=== PATIENT | female | born 1965 | race Caucasian/White ===

== ENCOUNTER → 2017-07-02 | Outpatient (CLI) | payer OTHER ==
[~2017-07-02] MED LIST: AMIT25TA9 PO; ATR25 PO; ATV5 PO; FLUT0.15 NAE; LSN/2025 PO; METO50TA8 PO; OXYC-57 PO; RIZA10TA18 PO; SERT-234 PO; VNTHFA/IN INH
--- NOTE | 2017-07-02 13:12 | DIAGNOSTIC IMAGING REPORT ---
R KNEE 3 VIEWS CLINICAL HISTORY: 51 years-old Female presenting with PAIN IN RIGHT KNEE. TECHNIQUE: Frontal, lateral, and sunrise views of the right knee were obtained. COMPARISON: None. FINDINGS: Mild medial joint space loss. Tricompartmental osteophytosis most prominent in the lateral compartment. There is [id number] cartilage loss at the lateral patellar facet. No significant patellar subluxation. No acute fracture or acute malalignment. No large knee joint effusion. IMPRESSION: 1. Tricompartmental degenerative changes most severe in the patellofemoral compartment. 2. No acute osseous injury. Electronically signed by: Amrit Currie M.D. 07/02/2017 1:10 PM Dictated Date/Time: 07/02/2017 1:09 PM
== END | disposition home or self-care (01) ==
LOC: C.RADBC 12:46
PROVIDERS: ATTEND Family Medicine
DX: M25.561 Pain in right knee (principal)

== ENCOUNTER → 2017-10-04 | Outpatient (CLI) | payer OTHER ==
[~2017-10-04] MED LIST changes: +LISI20TA11 PO; -LSN/2025 PO
--- NOTE | 2017-10-04 11:25 | DIAGNOSTIC IMAGING REPORT ---
L HAND MIN 3 VIEWS ROUTINE CLINICAL HISTORY: L40.50, M25.561, M79.671,M79.672, Z79.1 LEFT HAND PAIN COMPARISON: None. DISCUSSION: The bony mineralization appears normal. There are no acute fractures or dislocations. There are osteoarthritic changes present the level of the radiocarpal joint and first carpal metacarpal joint. There is no erosive disease. IMPRESSION: 1. No acute fractures 2. Osteoarthritic type changes at the level of the radiocarpal joint and first carpal metacarpal joint. 3. No evidence of erosive disease Electronically signed by: Talha Chávez M.D. 10/04/2017 11:24 AM Dictated Date/Time: 10/04/2017 11:23 AM
--- NOTE | 2017-10-04 11:47 | DIAGNOSTIC IMAGING REPORT ---
R HAND MIN 3 VIEWS ROUTINE CLINICAL HISTORY: L40.50, M25.561, M79.671,M79.672, Z79.1 RIGHT HAND PAIN COMPARISON: None. DISCUSSION: No acute fractures are visualized. There are no subluxations. There is no significant joint space narrowing. There is a tiny ulnar styloid erosion. Bony mineralization appears normal. IMPRESSION: 1. Ulnar styloid erosion 2. No fractures or subluxations identified. Electronically signed by: Talha Chávez M.D. 10/04/2017 11:46 AM Dictated Date/Time: 10/04/2017 11:45 AM
--- NOTE | 2017-10-04 11:48 | DIAGNOSTIC IMAGING REPORT ---
R FOOT MIN 3 VIEWS ROUTINE, L FOOT MIN 3 VIEWS ROUTINE HISTORY: 51 years-old Female L40.50, M25.561, M79.671,M79.672, Z79.1 chronic bilateral foot and hand pain COMPARISON: None available TECHNIQUE: 3 views of the bilateral feet FINDINGS: RIGHT: Moderate joint space narrowing with subchondral sclerosis and marginal spurring about the first MTP joint. Mild degenerative changes about the interphalangeal joints. Degenerative changes are noted about the midfoot and hindfoot. Large plantar enthesophyte about the calcaneus. No acute fracture or dislocation. LEFT: Moderate joint space narrowing with subchondral sclerosis and marginal spurring about the first MTP joint. Mild degenerative changes about the interphalangeal joints. Subcortical cystic changes with joint space narrowing noted throughout the tarsometatarsal joints. Large plantar enthesophyte about the calcaneus. No acute fracture or dislocation. IMPRESSION: 1. No acute fracture or dislocation. 2. Degenerative changes about the bilateral feet including moderate osteoarthritis about the bilateral first MTP joints. The above report was generated using voice recognition software. It may contain grammatical, syntax or spelling errors. Electronically signed by: Tyshawn Machado M.D. 10/04/2017 11:47 AM Dictated Date/Time: 10/04/2017 11:44 AM
[2017-10-04 12:30] LABS: BASO % 0.7 %; BASO ABS # 0.05 K/uL (0-0.2); EOS % 2.2 %; EOS ABS # 0.15 K/uL (0-0.5); HEMATOCRIT 39.1 % (37-47); HEMOGLOBIN 12.9 g/dL (12.0-16.0); IG# 0.02 K/uL (0.00-0.02); LYMPH % 23.8 %; LYMPH ABS # 1.65 K/uL (1.2-3.4); MEAN CELL VOLUME 91.8 fL (80-100); MEAN CORPUSCULAR HEMOGLOBIN 30.3 pg (25-34); MEAN PLATELET VOLUME 9.6 fL (7.4-10.4); MONO % 5.5 %; MONO ABS # 0.38 K/uL (0.11-0.59); NEUT % 67.5 %; NEUT ABS # 4.67 K/uL (1.4-6.5); PLATELET COUNT 267 K/uL (130-400); RED CELL DISTRIBUTION WIDTH SD 43.5 fL (36.4-46.3); WHITE BLOOD COUNT 6.92 K/uL (4.8-10.8)
[2017-10-04 12:45] LABS: ALBUMIN 3.8 gm/dl (3.4-5.0); ALKALINE PHOSPHATASE 80 U/L (45-117); ALT/SGPT 49 U/L (12-78); AST/SGOT 24 U/L (15-37); CREATININE 0.82 mg/dl (0.60-1.20); TOTAL PROTEIN 7.9 gm/dl (6.4-8.2)
== END | disposition home or self-care (01) ==
LOC: C.RAD1850 10:46
PROVIDERS: ATTEND Internal Medicine Rheumatology
DX: L40.50 Arthropathic psoriasis, unspecified (principal); M25.561 Pain in right knee; M79.671 Pain in right foot; M79.672 Pain in left foot; Z79.1 Long term (current) use of non-steroidal anti-inflammatories (NSAID); M19.071 Primary osteoarthritis, right ankle and foot; M19.072 Primary osteoarthritis, left ankle and foot; M19.042 Primary osteoarthritis, left hand; M18.12 Unilateral primary osteoarthritis of first carpometacarpal joint, left hand; M25.831 Other specified joint disorders, right wrist

== ENCOUNTER 2022-09-23 05:11 | Observation (INO) ==
--- NOTE | 2022-09-04 16:21 | PAT Medication Instructions ---
Medication Instructions Date of Service September 04, 2022 Home Medications Medication Instructions Recorded lorazepam 1 mg tablet 1 mg PO HS #30 tabs 04/07/22 nabumetone 750 mg tablet 750 mg PO BID #60 tabs 07/08/22 tramadol 50 mg tablet 50 mg PO Q8H PRN pain #30 tabs 07/20/22 amitriptyline 25 mg tablet 25 - 50 mg PO HS lisinopril 20 mg-hydrochlorothiazide 25 mg tablet 1 tab PO QAM pantoprazole 40 mg tablet,delayed release 40 mg PO QAM vit C 250 mg-vit E 90 mg-zinc 40 mg-copper 1 [id number] capsule (PreserVision AREDS-2) 1 tab PO BID fluticasone propionate 50 mcg/actuation nasal spray,suspension 1 spray intranasal DAILY rizatriptan 10 mg tablet 10 mg PO DIRECTED PRN Migraine Headache acetaminophen 500 mg tablet 1,000 mg PO TID PRN Pain cholecalciferol (vitamin D3) 125 mcg (5,000 unit) capsule 5,000 unit PO DAILY lorazepam 1 mg tablet 1 mg PO HS vitamin B complex 1 tab PO DAILY nabumetone 750 mg tablet 750 mg PO BID tramadol 50 mg tablet 50 mg PO Q8H PRN pain ascorbic acid (vitamin C) 500 mg capsule,extended release (Vitamin C) 500 mg PO DAILY cetirizine 10 mg tablet (Zyrtec) 10 mg PO HS dandelion root 500 mg capsule 500 mg PO DAILY fluticasone propionate 44 mcg/actuation HFA aerosol inhaler (Flovent HFA) 1 puff inhalation BID PRN sob melatonin 5 mg tablet 5 mg PO HS montelukast 10 mg tablet (Singulair) 10 mg PO QAM phenazopyridine 200 mg tablet (Pyridium) 200 mg PO Q8H PRN bladder pain zinc 50 mg tablet 50 mg PO DAILY ASK your surgeon for instructions nabumetone 750 mg tablet 750 mg PO BID ASK your prescriber and surgeon amitriptyline 25 mg tablet 25 - 50 mg PO HS STOP taking 2 weeks before surgery (or as soon as possible if surgery is within 2 weeks) vit C 250 mg-vit E 90 mg-zinc 40 mg-copper 1 [id number] capsule (PreserVision AREDS-2) 1 tab PO BID dandelion root 500 mg capsule 500 mg PO DAILY DO NOT take the morning of surgery lisinopril 20 mg-hydrochlorothiazide 25 mg tablet 1 tab PO QAM cholecalciferol (vitamin D3) 125 mcg (5,000 unit) capsule 5,000 unit PO DAILY vitamin B complex 1 tab PO DAILY ascorbic acid (vitamin C) 500 mg capsule,extended release (Vitamin C) 500 mg PO DAILY zinc 50 mg tablet 50 mg PO DAILY Take morning of surgery With a small sip of water, OTHERWISE NOTHING TO EAT OR DRINK AFTER MIDNIGHT: pantoprazole 40 mg tablet,delayed release 40 mg PO QAM fluticasone propionate 50 mcg/actuation nasal spray,suspension 1 spray intranasal DAILY rizatriptan 10 mg tablet 10 mg PO DIRECTED PRN Migraine Headache (if needed) acetaminophen 500 mg tablet 1,000 mg PO TID PRN Pain (if needed) tramadol 50 mg tablet 50 mg PO Q8H PRN pain (if needed) fluticasone propionate 44 mcg/actuation HFA aerosol inhaler (Flovent HFA) 1 puff inhalation BID PRN sob (if needed) phenazopyridine 200 mg tablet (Pyridium) 200 mg PO Q8H PRN bladder pain (if needed) Take evening before surgery rizatriptan 10 mg tablet 10 mg PO DIRECTED PRN Migraine Headache (if needed) acetaminophen 500 mg tablet 1,000 mg PO TID PRN Pain (if needed) lorazepam 1 mg tablet 1 mg PO HS tramadol 50 mg tablet 50 mg PO Q8H PRN pain (if needed) cetirizine 10 mg tablet (Zyrtec) 10 mg PO HS fluticasone propionate 44 mcg/actuation HFA aerosol inhaler (Flovent HFA) 1 puff inhalation BID PRN sob (if needed) melatonin 5 mg tablet 5 mg PO HS phenazopyridine 200 mg tablet (Pyridium) 200 mg PO Q8H PRN bladder pain (if needed) Other Notes If you have any questions please call us at [phone] or [phone] or [phone] or [phone]
--- NOTE | 2022-09-09 15:39 | Anesthesiology Consultation ---
Date of Service September 09, 2022 Assessment & Plan (1) Encounter for pre-operative examination: - patient does not blood transfusions unless in a life threatening situation. She declines providing reason for this. She mentions she is Rh negative, but expresses that is not her reason for concern. Surgeon's office made aware. I did discuss with patient and offer that she could contact the [facility] for a self- donation though would need to postpone surgery given recommendations on interval from self-donation to surgery or she could contact the [facility] for family member screening and donation. She declined both options. - patient concerns with neuraxial anesthesia: she has concerns this will exacerbate her chronic headaches, although prefers to avoid general anesthesia and plans to further discuss with anesthesiologist DOS. - Patient plans to contact her PCP regarding recurrence of symptoms with symptom free interval since completing antibiotic course for acute frontal sinusitis. She was not agreeable to COVID testing today. She was advised she will need to contact PAT if symptoms are not resolved by 09/13/22 as current policy is COVID testing be completed if patient is experiencing symptoms within 10 days of surgery, but also to determine if she is clinically appropriate to have surgery as scheduled. She verbalized understanding and agreement, denied questions or concerns. - check urine test STAT am DOS. - Outpatient joint assessment: Patient is currently scheduled for inpatient pathway. If re-evaluated and patient/surgeon requests outpatient pathway, patient is acceptable candidate for outpatient joint program from anesthesia standpoint pending surgeon's office assessment of pt motivation/support/completion of same day joint program preop requirements. Chart Review Chart Review: Acceptable Risk for Surgery and Patient seen in Pre Admission Testing Teaching & Discussion Pre-Anesthesia Teaching/Discussion Notes: Instructed NPO after midnight before surgery, except medications with 15 cc of water. Medication instructions provided according to the PAT guidelines. History Surgery Operation Date: 09/23/22 08:50 Proposed Procedures p Right Total Hip Arthroplasty(Right) - Quentin Singer MD Height/Weight Height: 5 ft 3 in Weight: 90.718 kg Allergies Allergy/AdvReac Type Severity Reaction Status Date / Time amoxicillin Allergy Mild BURNING OF Verified 09/04/22 15:11 BLADDER cephalexin Allergy Mild RASH Verified 09/04/22 15:11 Sulfa (Sulfonamide Allergy Mild RASH Verified 09/04/22 15:11 Antibiotics) hyoscyamine Allergy Unknown Verified 09/09/22 14:46 clarithromycin AdvReac Intermediate urinary Verified 09/09/22 14:46 symptoms azithromycin Allergy Intermediate hives, Uncoded 09/09/22 15:44 diarrhea Medications Home Medications Medication Instructions Recorded Confirmed Last Taken amitriptyline 25 mg tablet 25 - 50 mg PO HS 12/27/18 09/04/22 11/11/20 lisinopril 20 1 tab PO QAM 12/27/18 09/04/22 11/12/20 mg-hydrochlorothiazide 25 mg tablet pantoprazole 40 mg tablet,delayed 40 mg PO QAM 12/27/18 09/04/22 11/12/20 release vit C 250 mg-vit E 90 mg-zinc 40 1 tab PO BID 12/28/18 09/04/22 11/12/20 08:00 mg-copper 1 fr-zrogla-gwzfzr capsule (PreserVision AREDS-2) fluticasone propionate 50 1 spray intranasal DAILY 11/12/20 09/04/22 11/12/20 mcg/actuation nasal spray,suspension rizatriptan 10 mg tablet 10 mg PO DIRECTED PRN Migraine 11/12/20 09/04/22 Unknown Headache acetaminophen 500 mg tablet 1,000 mg PO TID PRN Pain 04/07/22 09/04/22 Unknown cholecalciferol (vitamin D3) 125 5,000 unit PO DAILY 04/07/22 09/04/22 Unknown mcg (5,000 unit) capsule lorazepam 1 mg tablet 1 mg PO HS #30 tabs 04/07/22 09/04/22 Unknown vitamin B complex 1 tab PO DAILY 04/07/22 09/04/22 Unknown nabumetone 750 mg tablet 750 mg PO BID #60 tabs 07/08/22 09/04/22 Unknown tramadol 50 mg tablet 50 mg PO Q8H PRN pain #30 tabs 07/20/22 09/04/22 Unknown ascorbic acid (vitamin C) 500 mg 500 mg PO DAILY 09/04/22 09/04/22 Unknown capsule,extended release (Vitamin C) cetirizine 10 mg tablet (Zyrtec) 10 mg PO HS 09/04/22 09/04/22 Unknown dandelion root 500 mg capsule 500 mg PO DAILY 09/04/22 09/04/22 Unknown fluticasone propionate 44 1 puff inhalation BID PRN sob 09/04/22 09/04/22 Unknown mcg/actuation HFA aerosol inhaler (Flovent HFA) melatonin 5 mg tablet 5 mg PO HS 09/04/22 09/04/22 Unknown montelukast 10 mg tablet 10 mg PO QAM 09/04/22 09/04/22 Unknown (Singulair) phenazopyridine 200 mg tablet 200 mg PO Q8H PRN bladder pain 09/04/22 09/04/22 Unknown (Pyridium) zinc 50 mg tablet 50 mg PO DAILY 09/04/22 09/04/22 Unknown Past Medical History Medical History (Updated 09/09/22 @ 15:48 by Verito Ling PA-C) Allergy-induced asthma last used rescue inhaler>this month; notes occasionally needs inhaler for sinusitis episodes as well Aortic valve stenosis Chronic sinusitis acute episode 08/26/22 Rx doxycycline by [facility] PCP x 7 days; notes recurrence of same symptoms with PCP and upcoming ENT 11/2022 Elevated cholesterol stopped taking atorvastatin Esophageal reflux controlled, stable per pt History of depression Hypertension controlled, stable per pt Inflammatory polyarthritis Interstitial cystitis Migraine aura without headache Tricuspid regurgitation mild Patient denies h/o stroke, seizures, heart attack, heart failure, DM, blood clots or blood transfusions. Exercise / Class Metabolic Activity II 4-5 Yardwork/Stairs/Walk up hill (denies chest discomfort or shortness of breath with 1 FOS) Past Family History Family History Other No family history of adverse response to anesthesia Obstructive sleep apnea Past Surgical History Surgical History H/O nasal septoplasty H/O shoulder surgery left History of cystoscopy History of tooth extraction Past Anesthesia History No Hx of Anesthesia Complications and No Family Hx of Anesthesia Complications History of PONV No Hx of PONV and Hx of Motion Sickness Social History Smoking Status: Never smoker Do You Dip or Chew Tobacco: No Hx Alcohol Use: Yes Alcohol type: wine alcohol intake frequency: a few times a month substance use type: does not use Review of Systems Snoring, denies witnessed apneas. She notes mild nasal congestion, frontal and maxillary pressure, postnasal drip, pharyngitis, fatigue, and cough productive of white sputum over the past several days-is in contact with her PCP as states symptoms are the same as earlier this month after completing doxycycline course noting several days of full symptom resolution. She denies visual changes, fever, or chills. Pt declines COVID testing. Patient denies chest pain, shortness of breath, dyspnea on exertion, wheezing, or palpitations. Physical Exam Vital Signs Vitals BP 112/75 P 91 TEMP 98.3 SP02 96% on RA RESP 18 Physical Patient is resting comfortably in chair in NAD, alert and oriented throughout visit, responding appropriately throughout the visit Full cervical extension range of motion without pain TMD 3.5 finger breadths Mallampati Score 3 Dentition: chipped tooth, denies loose teeth, caps/crowns, implants or bridges Lungs: normal respiratory effort. Good air movement, clear throughout to auscultation, no adventitious breath sounds Cardiac: regular rate and rhythm, no murmurs noted Carotid arteries: negative bruit bilat Lab Results Anesthesia Preop Results Results Anesthesia Widget: WBC 7.66 K/ul (4.8-10.8) 09/09/22 Hgb 11.6 g/dl (12.0-16.0) L 09/09/22 Hct 34.1 % (37.0-47.0) L 09/09/22 Plt 263 K/uL (130-400) 09/09/22 Na 135 mmol/L (136-145) L 09/09/22 K 3.5 mmol/L (3.5-5.1) 09/09/22 Cl 99 mmol/L (98-107) 09/09/22 CO2 27 mmol/L (21-32) 09/09/22 BUN 11 mg/dl (6-23) 09/09/22 Creat 0.75 mg/dl (0.6-1.2) 09/09/22 Glucose Level 102 mg/dl (70-99(Fasting)) H 09/09/22 PT 10.3 Seconds (9.0-12.0) 09/09/22 PTT 27.3 Seconds (21.0-31.0) 09/09/22 INR 0.9 (0.9-1.1) 09/09/22 Blood Type A Negative 09/09/22 Antibody Screen NEGATIVE 09/09/22 Testing Electrocardiogram Date: 09/09/22 NSR, rate 91 bpm Chest X-Ray Date: 09/09/22 No acute process Echocardiogram Date: 05/15/22 EF 60-64% Mild cLVH Mild aortic valve stenosis Mild tricuspid regurgitation Normal LV wall motion
[~2022-09-23 05:11] MED LIST changes: +ALLERGY Noted to ORDERED Medication SCH; -AMIT25TA9 PO; -ATR25 PO; -ATV5 PO; -FLUT0.15 NAE; -LISI20TA11 PO; -METO50TA8 PO; -OXYC-57 PO; -RIZA10TA18 PO; -SERT-234 PO; -VNTHFA/IN INH
[2022-09-23] MEDS ORDERED: TRANEXAMIC ACID 1,000 MG **IV Intra-op IV SCH (06:00)
[2022-09-23] MEDS ORDERED: ACETAMINOPHEN 500 MG TAB PO SCH (06:00)
[2022-09-23] MEDS ORDERED: Scopolamine 1 MG TDSY TD SCH (06:00)
[2022-09-23] MEDS ORDERED: LR 60ML/HR IV SCH (06:00)
[2022-09-23] MEDS ORDERED: LR 500ML BOLUS, THEN 15ML/HR IV SCH (06:00)
[2022-09-23] MEDS ORDERED: dexAMETHasone**PF** 10 MG/ML VIAL IV SCH (06:00)
[2022-09-23] MEDS ORDERED: CeleBREX 200 MG CAP PO SCH (06:00)
[2022-09-23] MEDS ORDERED: METOCLOPRAMIDE HCL 10 MG TABLET PO SCH (06:00)
[2022-09-23] MEDS ORDERED: ceFAZolin 2000MG 2,000 MG/15 ML SYR IV SCH (06:00)
[2022-09-23] MEDS ORDERED: FAMOTIDINE 20 MG TAB PO SCH (06:00)
[2022-09-23] MEDS ORDERED: fentaNYL citrate PF 100 MCG/2 ML VIAL ONE (06:31)
[2022-09-23] MEDS ORDERED: MIDAZOLAM HCL 1 MG/ML 2ML VIAL ONE (06:31)
[2022-09-23] MEDS ORDERED: MoRPHine SULFATE PF 1 MG/ML 10 ML AMP/VIAL ONE (06:31)
[2022-09-23] MEDS ORDERED: LIDOCAINE 2% 2 ML VIAL/AMP(20MG/ML) INFIL ONE (06:34)
[2022-09-23] MEDS ORDERED: BUPIVACAINE 0.5 % 5 MG/1 ML PF 10ML VIAL ONE (06:34)
[2022-09-23] MEDS ORDERED: PROPOFOL IV EMULSION 10 MG/ML 20 ML VIAL IV ONE ×2 (06:34→08:18)
[2022-09-23] MEDS ORDERED: ONDANSETRON INJ 2 MG/ML 2 ML VIAL ONE (06:35)
--- NOTE | 2022-09-23 06:52 | History & Physical Bridge Note ---
Date of Service September 23, 2022 History & Physical Bridge Note I have examined the patient, reviewed the History & Physical and in the interval since the performance of the History & Physical I have noted the following changes of clinical significance: no changes noted
[2022-09-23] MEDS ORDERED: ceFAZolin 2,000 MG/15 ML IV PUSH IV ONE (06:53)
[2022-09-23] MEDS ORDERED: NALOXONE HCL 0.08 MG in SYRINGE 1.8 ML IV PRN (06:58)
[2022-09-23] MEDS ORDERED: MoRPHine SULFATE 2 MG/ML CARP IV PRN (06:58)
[2022-09-23] MEDS ORDERED: ePHEDrine sulfate 50 MG/ML AMP IV PRN (06:58)
[2022-09-23] MEDS ORDERED: NALOXONE HCL 0.4 MG/1 ML VIAL/CARP IV PRN ×2 (06:58→10:37)
[2022-09-23] MEDS ORDERED: ONDANSETRON INJ 2 MG/ML 2 ML VIAL IV PRN ×2 (06:58→10:37)
[2022-09-23] MEDS ORDERED: PROMETHAZINE HCL 6.25 MG in SODIUM CHLORIDE 0.9% 50 ML IV PRN (06:58)
[2022-09-23] MEDS ORDERED: LACTATED RINGER'S 500 ML IV PRN (06:58)
[2022-09-23] MEDS ORDERED: NALOXONE HCL 1 MG in SODIUM CHLORIDE 0.9% 1000ML 1,000 ML IV PRN (06:58)
[2022-09-23] MEDS ORDERED: NALBUPHINE HCL INJ 10 MG/ML AMP IV PRN (06:58)
[2022-09-23] MEDS ORDERED: MoRPHine SULFATE PF 1 MG/ML 10 ML AMP/VIAL INT SPINAL ONE (06:58)
[2022-09-23] MEDS ORDERED: DC INTRASPINAL MORPHINE SCH (07:00)
[2022-09-23] MEDS ORDERED: SODIUM CHLORIDE 0.9% 1000ML 1,000 ML IV SCH (07:00)
[2022-09-23] MEDS ORDERED: NO NARCOTICS OR SEDATIVES SCH (07:00)
[2022-09-23] MEDS ORDERED: BUPIVACAINE/EPINEPHRINE 0.5% MPF 1:200,000 30 ML VIAL ONE (07:07)
[2022-09-23] MEDS ORDERED: PHENYLEPHRINE 100MCG/ML 5ML SYR ONE (07:22)
[2022-09-23] MEDS ORDERED: PHENYLEPHRINE HCL 10 MG/ML VIAL ONE (07:22)
[2022-09-23] MEDS ORDERED: GLYCOPYRROLATE 0.2 MG/ML VIAL ONE (07:35)
[2022-09-23] MEDS ORDERED: ePHEDrine sulfate 50 MG/ML AMP ONE (07:36)
[2022-09-23] MEDS ORDERED: METOCLOPRAMIDE HCL INJ 5 MG/ML 2 ML VIAL ONE (07:36)
[2022-09-23] MEDS ORDERED: diphenhydrAMINE 50 MG/ML VIAL ONE (07:36)
[2022-09-23] MEDS ORDERED: DEXAMETHASONE SOD INJ 4 MG/ML VIAL ONE (07:36)
[2022-09-23] MEDS ORDERED: FAMOTIDINE/PF 20 MG/2 ML VIAL IV ONE (07:39)
--- NOTE | 2022-09-23 08:59 | Operative Report ---
PG Post Operative Report Pre & Post Diagnosis Operation Date: 09/23/22 07:00 Pre-Op Diagnosis: Right Hip Degenerative Joint Disease Post-Op Diagnosis: Right Hip Degenerative Joint Disease, Chronic Right Hip Abductor Tear I identified the patient and participated in the time-out.: Yes Procedure Operation Date: 09/23/22 07:00 Actual Procedures p Right Total Hip Arthroplasty, Right Hip Abductor Repair(Right) - Quentin Singer MD Surgeon Quentin Singer MD Composing Room Machinist Joseluis Marinelli PA-C Estimated Blood Loss 200 Findings Consistent with Post-Op Diagnosis Operative findings revealed right hip DJD. She had grade 4 hasj-kx-riet disease the femoral head and acetabulum. She had chronic hip abductor tear. Specimens Right femoral head sent for pathology Anesthesia Type Spinal MAC Complications none Disposition Accompanied Patient To Recovery: No Indications Patient is a 56-year-old female history of year history of increased right hip pain discomfort patient went to extensive conservative treatment which became less successful over time. X-rays show advanced hip arthritis. Patient elects proceed with total hip arthroplasty. Description of Procedure Operative implants consist of: 1 Biomet G7 size 52 mm acetabular shell. 2. 6.5 cancellous acetabular screws 135 mm in length 120 mm length. 3. Sharon eliminator. 4 highly cross-linked polyethylene liner with 52 mm outer diameter, 36 mm diam with replaced inferior and posterior. 5. DePuy Corail size 10 short neck 125 degree angle femoral stem 6. +5/36 mm ceramic articular ball. The patient was taken to the operating, identified, placed on the operating table supine position. All contractures were properly padded. IV antibiotics 5 anesthesia team. A spinal anesthetic and the implement holding area. Medel catheter was placed in sterile fashion. The patient then placed in left lateral cubitus position. Roll was placed. His lumbar Positioner was used for positioning. Right hip and leg were then prepped and draped in usual sterile fashion. A posterior lateral approach to the right hip was then performed through a curvilinear incision centered over the greater trochanter. Sharp dissection was carried through subcutaneous tissue down to the IT band and gluteal fascia the IT band gluteal fascia were incised longitudinally in line with skin incision. The underlying greater bursa was excised. She had a chronic hip abductor avulsion which was very chronic. The piriformis and external rotators along with the posterior joint capsule was then released from the posterior aspect hip as a single layer. Great care was taken throughout the procedure protecting sciatic nerve at all times. The hip was internally rotated and dislocated. Femoral neck osteotomy cut was made with Final Cut 10 mm above the lesser trochanter. Femoral head was removed and sent for pathology. The femur was retracted anteriorly. Attention then drawn the acetabulum. The acetabulum was excised. The pulmonary fat was excised. Sequential reaming was then performed to a size 43 and progressing up to 51. I reamed a little bit with 52 reamer and then placed a 52 mm cup in about 40 degrees lateral opening and 20 degrees of anteversion. It was fixed with two 6.5 cancellous acetabular screws. Trial liner was placed. Attention to the femur. The proximal femur was entered with a orangutrans cutter followed by canal finder. I then broached beginning with size 8 8 and progressed up to a 10. Excellent fit of the 10 to retrialed hip and with the standard neck it was then just too tight. With a short neck and seem to recreate soft tissue tension appropriate and was fully stable. I did elect to use a kidd in order to maximize her stability in flexion. I like to place these implants. Trial implants were removed. An apex hole customer complaint service supervisor was placed. Highly cross- linked polyethylene liner was then placed inferior and posterior was placed. A size 10 short neck 125 degree angle stem was impacted in position. +5/36 mm ceramic articular ball was placed. Hip is located. The posterior External Rotators Were Then Repaired through Drill Holes in the Posterior Trochanter As a Single Layer. I Then Irrigated the Wound Extensively. I Did Scuffed up the Greater Trochanter and Then Placed a Single Layer Juggernaut Suture in the Trochanter. There Were 2 Sutures to This. One Was Placed to the Anterior Hip Abductors and 1 through the Posterior. These Were Tied down and Then Reinforced with Some Vicryl Sutures. The Wound Was Irrigated Extensively. The IT Band Gluteal Fascia Then Closed #1 PDS Suture Running Fashion. The subcutaneous tissues were Closed in 2 layers the deep layer with #2 Vicryl suture and subcutaneous tissues with 2 Dexon suture in a buried fashion. Skin was closed with skin ania. A Prevena VAC dressing was applied. Patient then transferred to the recovery in stable condition. Patient tolerated procedure well and there were no complications. Joseluis Marinelli, my physician mailing machine assistant, was present for the entire procedure. His assistance was essential and required for appropriate patient positioning, prepping and draping, surgical exposure, performing the technical details of the operation, placement the implants, closure of the wound, and placement of the sterile bandage. I attest to the content of the Intraoperative Record and any orders documented therein. Any exceptions are noted below.
--- NOTE | 2022-09-23 09:50 | XRay Report ---
AP PELVIS, CROSSTABLE LATERAL RIGHT HIP History: Right total hip arthroplasty. Degenerative arthritis. Postop. FINDINGS: The patient is status post a right total hip arthroplasty. The hardware is intact. No fract ure or dislocation. Skin ania are in place. IMPRESSION: Right total hip arthroplasty. No evidence for hardware complication ACT 112: Negative or not required by law. Electronically signed by: Kamran Perez M.D. 09/23/2022 9:48 AM
[2022-09-23] MEDS ORDERED: DANDELION ROOT PO SCH (10:37)
[2022-09-23] MEDS ORDERED: PHENAZOPYRIDINE HCL 200 MG TAB PO PRN (10:37)
[2022-09-23] MEDS ORDERED: MAGNESIUM HYDROXIDE SUSP 30 ML UDC PO PRN (10:37)
[2022-09-23] MEDS ORDERED: ALUMINUM/MAGNESIUM SUSP 30 ML UDC PO PRN (10:37)
[2022-09-23] MEDS ORDERED: bisacodyL 10 MG SUPP PR PRN (10:37)
[2022-09-23] MEDS ORDERED: RIZATRIPTAN BENZOATE 10 MG TAB PO PRN (10:37)
[2022-09-23] MEDS ORDERED: METOCLOPRAMIDE HCL INJ 5 MG/ML 2 ML VIAL IV PRN (10:37)
[2022-09-23] MEDS ORDERED: FLUTICASONE PROP HFA INH 44 MCG INHALER INH PRN (10:37)
--- NOTE | 2022-09-23 11:09 | Anesthesiology Progress Note ---
Date of Service September 23, 2022 Anesthesia Post Procedure Vital Signs Vital Signs: Temp Pulse Pulse Resp BP Pulse Ox O2 Del Method 09/23/22 10:15 96 H 16 103/62 100 Nasal Cannula 09/23/22 10:00 94 H 14 101/64 95 Room Air 09/23/22 09:35 36.3 C L 96 H 17 94/66 L 97 Room Air 09/23/22 09:25 97 H 15 104/63 96 Room Air 09/23/22 09:15 96 H 12 96/62 L 95 Room Air 09/23/22 09:05 101 H 15 98/58 L 97 Room Air 09/23/22 09:45 96 H 18 104/60 97 Room Air 09/23/22 08:55 94 H 13 101/67 100 Oxymask 09/23/22 08:47 36.5 C 99 H 12 102/49 L 97 Oxymask 09/23/22 06:01 36.9 C 92 H 18 123/80 95 Room Air O2 Flow Rate 09/23/22 10:15 2 09/23/22 10:00 09/23/22 09:35 09/23/22 09:25 09/23/22 09:15 09/23/22 09:05 09/23/22 09:45 09/23/22 08:55 4 09/23/22 08:47 6 09/23/22 06:01 Pain Intensity Right Hip: Pain Intensity: 3 Transfer of Care Handoff Completed per policy Notes Mental Status: alert / awake / arousable and participated in evaluation Patient Amnestic to Procedure: Yes Nausea / Vomiting: adequately controlled Pain: adequately controlled Airway Patency, RR, SpO2: stable & adequate BP & HR: stable & adequate Hydration State: stable & adequate Neuraxial Anesthesia: was administered and sensory block is resolving Anesthetic Complications: no major complications apparent and Pt Satisfied with anesthetic care
[2022-09-23] MEDS: ACETAMINOPHEN 500 MG TAB PO SCH ×3 (13:17→21:28)
[2022-09-23] MEDS: LISINOPRIL/HCTZ 20/25MG 1 TAB PO SCH (13:18)
[2022-09-23] MEDS: ASPIRIN 81 MG ECTAB PO SCH ×2 (13:18→21:29)
[2022-09-23] MEDS: FLUTICASONE PROPIONATE NA SPR 16 GM BTL NAE SCH (13:18)
[2022-09-23] MEDS: SODIUM CHLORIDE 0.9% 1000ML 1,000 ML IV SCH ×2 (13:19→23:06)
[2022-09-23] MEDS: VITAMIN B COMPLEX TAB PO SCH (13:19)
[2022-09-23] MEDS: CHOLECALCIFEROL 5,000 UNITS 125 MCG TAB PO SCH (13:20)
[2022-09-23] MEDS: KETOROLAC 30 MG/ML VIAL IV SCH ×3 (13:20→23:05)
[2022-09-23] MEDS: CEROVITE ADV FORMULA TAB PO SCH ×2 (13:20→21:34)
[2022-09-23] MEDS: SENNA 8.6 MG TAB PO SCH ×2 (13:21→21:30)
[2022-09-23] MEDS: MULTIVITAMIN TAB PO SCH (13:21)
[2022-09-23] MEDS: PANTOprazole 40 MG TAB PO SCH (13:22)
[2022-09-23] MEDS: DOCUSATE SODIUM 100 MG CAP PO SCH ×2 (13:22→21:29)
[2022-09-23] MEDS: ceFAZolin 2000MG 2,000 MG/15 ML SYR IV SCH ×2 (14:25→23:05)
[2022-09-23] MEDS: diphenhydrAMINE 50 MG/ML VIAL IV PRN ×2 (14:25→23:04)
[2022-09-23] MEDS ORDERED: TRANEXAMIC ACID / 0.7% NACL 1,000 MG/100 ML BAG IV SCH (15:00)
[2022-09-23] MEDS: ASCORBIC ACID 500 MG TAB PO SCH (17:51)
[2022-09-23] MEDS: Scopolamine CHECK PATCH PLACEMENT SCH ×2 (17:56→23:44)
[2022-09-23] MEDS ORDERED: LORazepam 1 MG TAB PO SCH (21:00)
[2022-09-23] MEDS ORDERED: AMITRIPTYLINE HCL 25 MG TAB PO SCH (21:00)
[2022-09-23] MEDS ORDERED: MELATONIN 3 MG TAB PO SCH (21:00)
[2022-09-23] MEDS ORDERED: MONTELUKAST SODIUM 10 MG TABLET PO SCH (21:00)
[2022-09-23] MEDS ORDERED: CETIRIZINE HCL 10 MG TABLET PO SCH (21:00)
[2022-09-23] MEDS ORDERED: SENNA 8.6 MG TAB PO SCH (21:00)
[2022-09-24] MEDS ORDERED: HYDROmorphone INJ 0.5 MG/0.5 ML SYR IV PRN (01:00)
[2022-09-24] MEDS ORDERED: diphenhydrAMINE Capsule 25 MG CAP PO PRN (01:00)
[2022-09-24] MEDS ORDERED: oxyCODONE HCL IR 5 MG TAB (IMMEDIATE RELEASE) PO PRN (01:00)
[2022-09-24] MEDS: KETOROLAC 30 MG/ML VIAL IV SCH ×2 (04:52→12:11)
[2022-09-24 06:43] LABS: BUN Creatinine Ratio 22.4 (10-20); Basophils # (auto) 0.01 K/uL (0-0.2); Basophils % (auto) 0.1 %; Calcium 8.3 mg/dl (8.6-10.3); Creatinine Clr Calc Pharmacy 118.3 ml/min; Est GFR (African American) 121.1 ml/min; Est GFR (Non-African American) 104.5 ml/min; Hematocrit (blood only) 26.9 % (37.0-47.0); Hemoglobin 9.2 g/dl (12.0-16.0); Immature Granulocytes # (auto) 0.07 K/uL (0.01-0.20); Immature Granulocytes % (auto) 0.6 %; Lymphocytes # (auto) 1.18 K/uL (1.2-3.4); Lymphocytes % (auto) 9.9 %; Mean Corpuscular Hemoglobin 30.4 pg (25.0-34.0); Mean Corpuscular Hgb Conc 34.2 g/dL (32.0-36.0); Mean Corpuscular Volume 88.8 fL (80.0-100.0); Mean Platelet Volume 9.5 fL (9.4-12.4); Monocytes # (auto) 0.73 K/uL (0.11-0.59); Monocytes % (auto) 6.1 %; Neutrophils # (auto) 9.94 K/uL (1.40-6.50); Neutrophils % (auto) 83.3 %; Platelet Count 208 K/uL (130-400); Potassium 3.6 mmol/L (3.5-5.1); RDW Coefficient of Variation 12.2 % (11.5-14.5); RDW Standard Deviation 39.8 fL (36.4-46.3); Red Blood Count 3.03 M/uL (4.20-5.40); White Blood Count 11.93 K/ul (4.8-10.8)
--- NOTE | 2022-09-24 07:20 | Orthopedic Progress Note ---
Date of Service September 24, 2022 Assessment & Plan (1) S/P total right hip arthroplasty: POD #1 from right beatriz, and abductor repair PT/OT: wbat, hip precautions, avoid active hip abduction dvt prophylaxis: teds, scds, aspirin Pain controlled. D/c vazqeuz catheter today discharge planning: likely home with home health today after PT. Follow up approx 2 weeks post op with Dr. Singer. Subjective . 56 year old patient POD #1 from right beatriz. Doing pretty well today. Not really having much pain. She said her leg feels heavy. Had some lightheadedness yesterday. Denies chest pain or shortness of breath. No numbness or tingling in her leg. No other complaints. Review of Systems All systems reviewed & are unremarkable except as noted in HPI & below. Physical Exam . alert and oriented. NAD. VSS Right leg: Well aligned. Hip appears located. Dressing intact and suction working. No calf tenderness. Able to dorsiflex and plantarflex. NVI. Results & Data Results & Data Laboratory Results .labs reviewed. Hemoglobin 9.2. Diagnostic Findings . PG Care Time/CCT Total # of Minutes Spent Total Time Spent with Patient: Total time spent is greater than 50% in coordination of care (as documented) at patient's floor/unit and/or counseling patient: Coding Diagnoses S/P total right hip arthroplasty Z96.641
[2022-09-24] MEDS ORDERED: dexAMETHasone 10 MG in SYRINGE 0 ML IV SCH (08:00)
[2022-09-24] MEDS: ASCORBIC ACID 500 MG TAB PO SCH (08:34)
[2022-09-24] MEDS: ASPIRIN 81 MG ECTAB PO SCH (08:34)
[2022-09-24] MEDS: LISINOPRIL/HCTZ 20/25MG 1 TAB PO SCH (08:35)
[2022-09-24] MEDS: PANTOprazole 40 MG TAB PO SCH (08:36)
[2022-09-24] MEDS: CEROVITE ADV FORMULA TAB PO SCH (08:36)
[2022-09-24] MEDS: Scopolamine CHECK PATCH PLACEMENT SCH (08:36)
[2022-09-24] MEDS: DOCUSATE SODIUM 100 MG CAP PO SCH (08:36)
[2022-09-24] MEDS: CHOLECALCIFEROL 5,000 UNITS 125 MCG TAB PO SCH (08:36)
[2022-09-24] MEDS: ACETAMINOPHEN 500 MG TAB PO SCH (08:37)
[2022-09-24] MEDS: SENNA 8.6 MG TAB PO SCH (08:37)
[2022-09-24] MEDS: FLUTICASONE PROPIONATE NA SPR 16 GM BTL NAE SCH (08:37)
[2022-09-24] MEDS ORDERED: ZINC SULFATE 220 MG CAPSULE PO SCH ×2 (09:00)
[2022-09-24] MEDS: MULTIVITAMIN TAB PO SCH (09:10)
[2022-09-24] MEDS: VITAMIN B COMPLEX TAB PO SCH (09:10)
== END 2022-09-24 13:45 | disposition home or self-care (01) ==
LOC: 3E 05:11 → ASU 05:11